=== PATIENT | female | born 2005 | race Caucasian/White ===

== ENCOUNTER 2024-12-03 10:26 | Emergency (ER) | payer OTHER, SELFPAY ==
[2024-12-03 10:27] VITALS: BP 107/70; PULSE 69; RESP 14; TEMP 36.4; O2SAT 100; BMI 24.0
--- NOTE | 2024-12-03 10:43 | CT_ITS ---
PROCEDURE: ABDOMEN/PELVIS W IV CONT ONLY REASON FOR EXAM: Hematemesis following brushing of the teeth. TECHNIQUE: Abdomen and pelvis CT with intravenous contrast. IV CONTRAST: 100 cc of Isovue-300. COMPARISON: None. FINDINGS: Lung bases: Clear Liver: Unremarkable. Gallbladder: Unremarkable. Spleen: Unremarkable. Pancreas: Unremarkable. Adrenals: Unremarkable. Kidneys: Unremarkable. Bladder: Unremarkable. Reproductive Organs: Small amount of free fluid is seen in the cul-de-sac. This may be related to the patient's menstrual cycle probably due to recent ovulation. Bowel: Unremarkable. Appendix: Normal. Lymph nodes: No suspicious lymph node enlargement. Vasculature: Major vascular structures are unremarkable. Peritoneum / Retroperitoneum: No ascites. No free air. Bones: Unremarkable. CT/Abdomen/Pelvis W IV Cont ONLY IMPRESSION: Small amount of free fluid is seen in the cul-de-sac most likely secondary to p atient's menstrual cycle. One or more dose reduction techniques were used (e.g., Automated exposure contr ol, adjustment of the mA and/or kV according to patient size, use of iterative reconstruction technique). Reading Location: [id number]
--- NOTE | 2024-12-03 10:44 | EX.ED.DYSGE1 ---
HPI History of Present Illness Chief Complaint: GI Bleed Narrative Narrative: Patient is a 19-year-old female no known significant past medical history who presents to the emergency department the chief complaint of abdominal pain nausea vomiting with 1 episode of hematemesis. Patient states that this when she woke up she was brushing her teeth she vomited out that there was blood in her vomit. Patient denies any vomiting prior to this episode and states that she has not any recent alcohol use. Patient states that she is not sexually active and had her midcycle approximately 3 weeks ago. Patient states that she talked to few of her friends and advised her to be evaluated. Patient rates her abdominal pain a 5 out of 10 currently. PFSH PFSH Medical History no medical history Home Medications ?Medication ?Instructions ?Recorded ?Last Taken ?Type dicyclomine 20 mg tablet 20 mg PO TID #20 tabs 12/03/24 Unknown Rx ondansetron 4 mg disintegrating 4 mg PO Q6H PRN nausea and 12/03/24 Unknown Rx tablet vomiting #20 tabs Allergy/AdvReac Type Severity Reaction Status Date / Time No Known Allergies Allergy Verified 12/03/24 10:30 Family History no significant family his Surgical History no surgical history Social History Smoking Status: Never smoker ROS ROS ED ROS Narrative Constitutional: Denies fevers, chills, headaches, lightness, dizziness Eyes: Denies change in vision double vision blurry vision Cardiovascular: Denies chest pain Respiratory: Denies shortness of breath Abdomen: Complains of abdominal pain and hematemesis x 1 as noted above after brushing her teeth today : Denies any painful urination, hematuria, polyuria Neurological: Denies numbness, weakness, tingling Musculoskeletal: Denies back pain Skin: Denies rashes or lesions EXAM Physical Exam Narrative Exam Narrative: General: Patient lying in bed rest comfortably did not appear to be in acute distress Head: Atraumatic, normocephalic Eyes: PERRL bilaterally, EOMI bilaterally, no conjunctival injection noted Neck: Soft, supple, trachea midline Cardiovascular: Regular rate and rhythm no murmurs gallops rubs noted Respiratory: Clear to auscultation bilaterally no rales rhonchi or wheezes noted Abdomen: Soft, nondistended, diffuse tenderness to palpation no rebound guarding on exam Extremities: +5/5 strength noted in the bilateral upper and lower extremities, radial pulses +2/4 in the bilateral extremities, no pedal edema on exam Neurological: Patient following commands knew that she was at [facility] year is 2024 Skin: Warm, dry, intact no rashes or lesions noted Const Vital Signs: 12/03/24 10:27 12/03/24 12:27 Temperature 97.6 F L Temperature Source Oral Pulse Rate 69 79 Respiratory Rate 14 14 Blood Pressure 107/70 Blood Pressure Mean 82 Pulse Ox 100 98 Oxygen Delivery Method Room Air Room Air MDM MDM MDM Narrative Medical decision making narrative: Patient is a 19-year-old female who presented to the emerged part with a chief complaint of 1 episode of hematemesis. On the differential diagnose includes Melamin to cholecystitis, appendicitis, pancreatitis, [place]-H[place] tear although she had no vomiting prior to this, gastritis. Once workup is obtained reviewed she will be reevaluated. Patient be given IV fluid hydration. CBC showed no evidence leukocytosis with normal at 6.1, he was stable 1.9, plate count was noted be 345. Sodium normal 140, potassium of 4.5, creatinine normal at 0.89. Patient AST and ALT were 32 and 14 respectively. Patient lipase normal at 29, test negative, urinalysis showed no evidence of infection. Patient CT ab pelvis with IV contrast showed small amount of free fluid seen in the cul-de-sac most likely secondary to patient's menstrual cycle. Reevaluation the patient the entire time she has been here in the emergency department she has not had any hematemesis. She would like to go home at this point time. She will be referred to a primary care physician and will be given prescriptions for Zofran and Bentyl in case she is coming down with a viral gastroenteritis such as the flu. She is encouraged return with worsening symptoms or concerns. She is agreeable this plan all question concerns answered she was discharged home in stable condition. Lab Data Labs: Laboratory Results - last 24 hr 12/03/24 10:59 WBC 6.1 RBC 4.39 Hgb 11.9 L Hct 36.6 L MCV 83.4 MCH 27.1 MCHC 32.5 RDW Std Deviation 44.1 H RDW Coeff of Kierra 14.6 Plt Count 345 MPV 9.2 Immature Gran % (Auto) 0.200 Neut % (Auto) 66.6 Lymph % (Auto) 26.7 [place] % (Auto) 4.8 Eos % (Auto) 1.0 Baso % (Auto) 0.7 Absolute Neuts (auto) 4.1 Absolute Lymphs (auto) 1.62 Nucleated RBC % 0 Sodium 140 Potassium 4.5 Chloride Direct 105 Carbon Dioxide 26.4 Anion Gap 9 BUN 10 Creatinine 0.89 Estim Creat Clear Calc 93.60 Est GFR (MDRD) Non-Af 95 BUN/Creatinine Ratio 11.0 Glucose 97 Calcium 9.4 Total Bilirubin 0.53 AST 32 ALT 14 Alkaline Phosphatase 59 Total Protein 7.2 Albumin 4.6 Globulin 2.6 Albumin/Globulin Ratio 1.8 Lipase 29 Serum , Qual NEGATIVE Urine Color Straw Urine Clarity Clear Urine pH 6.5 Ur Specific [place] 1.010 Urine Protein Negative Urine Glucose (UA) Normal Urine Ketones Negative Urine Occult Blood Negative Urine Nitrite Negative Urine Bilirubin Negative Urine Urobilinogen Normal Ur Leukocyte Esterase Negative Urine RBC 0 SEEN Urine WBC 0-5 SEEN Ur Squamous Epith Cells 0-5 SEEN Urine Bacteria 0 SEEN Urine Mucus 0 SEEN Radiography Diagnostic Testing: Clinical Impression(s) from Imaging Studies Abdomen/Pelvis CT 12/03/24 10:43 IMPRESSION: Small amount of free fluid is seen in the cul-de-sac most likely secondary to patient's menstrual cycle. One or more dose reduction techniques were used (e.g., Automated exposure control, adjustment of the mA and/or kV according to patient size, use of iterative reconstruction technique). Reading Location: [facility] Discharge Plan Triage Chief Complaint: GI Bleed ED Provider: Jorden Aleman Dx/Rx/DC Orders Clinical Impression: Nausea & vomiting Prescriptions: New dicyclomine 20 mg tablet 20 mg PO TID Qty: 20 0RF ondansetron 4 mg tablet,disintegrating 4 mg PO Q6H PRN (Reason: nausea and vomiting) Qty: 20 0RF Primary Care Provider: Care Physician,No Primary Referrals: NOT,DEFINED [Non-Staff] - Acacia Cooper Martha, COLD SAW OPERATOR-C [[facility]] - Activity Restrictions/Additional Instructions: Your CT did not show anything acute today. Use prescriptions as prescribed. Your blood work was normal. You are given a primary care physician to follow-up with. Return with worsening symptoms or other concerns. Print Language: [place] Disposition Disposition: Home, Self Care
[2024-12-03 11:07] LABS: Bacteria 0 SEEN /hpf (None Seen); Mucous, Urine 0 SEEN /hpf (<or=2+)
[2024-12-03 11:10] LABS: Absolute Lymphocyte Count 1.62 X10^3/uL (0.83-4.51); Absolute Neutrophil Count 4.1 X10^3/uL (2.0-7.7); Basophil# 0.04 X10^3/uL; Basophil% 0.7 % (0-1); Eosinophil# 0.06 X10^3/uL; Hematocrit 36.6 % (37-47); Hemoglobin 11.9 g/dL (12.0-15.0); Lymphocyte # 1.62 X10^3/ul (0.83-4.51); Lymphocyte % 26.7 % (19-41); Mean Corp Hgb Conc 32.5 g/dL (32-36); Mean Corpuscular Hgb 27.1 pg (27.0-32.0); Mean Corpuscular Volume 83.4 fL (81-99); Mean Platelet Vol. 9.2 fl (6.2-12.0); Monocyte# 0.29 X10^3/uL; Monocyte% 4.8 % (0-10); NRBC Flagged by Analyzer 0 % (0-5); Neutrophil # 4.05 X10^3/uL (2.7-7.7); Neutrophil % 66.6 % (47-70); Platelet Count 345 K/mm3 (150-450); RBC Distribution Width CV 14.6 % (11.6-14.6); RBC Distribution Width SD 44.1 fl (35.1-43.9); Red Blood Count 4.39 M/mm3 (4.2-5.4); White Blood Count 6.1 K/mm3 (4.4-11.0)
[2024-12-03 11:15] LABS: Color, Urine Straw (Yellow); Glucose, Dipstick Normal (Normal); Ketone-Dipstick Negative (Negative); Leukocyte Esterase-Dipstick Negative /ul (Negative); Nitrite-Dipstick Negative (Negative); Occult Blood-Urine Negative /ul (Negative); Protein-Dipstick Negative (Negative); Urine Bilirubin Dipstick Negative (Negative); Urine Clarity Clear (Clear); Urine Urobilinogen Normal (Normal); Urine pH 6.5 (5.0 - 8.0)
[2024-12-03 11:41] LABS: Internal QC Validated? YES +Cl - CLEAR BKGD; Pregnancy, Serum, hCG Quali. NEGATIVE Negative
[2024-12-03 11:54] LABS: Lipase 29 U/L (13-75)
--- NOTE | 2024-12-03 11:56 | CM.ED ---
Social work Reason for referral: no PCP Referral source: case find This SW identified patient's lack of PCP and need for resources. This SW entered patient's room, introducing self and role at [facility]. Patient accepted SW visit and confirmed lack of PCP due to moving to [place] about a month ago from [place]. Patient stated needing to set up a PCP and a dentist still, but denied further needs at this time. Patient accepted resources of [facility] Provider Directory and Leonie Norton information. Tasha Dumont, AIRPORT OPERATIONS SUPERVISOR, DIGITAL PRESS OPERATOR
[2024-12-03 11:58] LABS: Red Blood Cells-Urine 0 SEEN /hpf (0-5); Squamous Epithelial Cells - UA 0-5 SEEN /hpf (5-10); White Blood Cells 0-5 SEEN /hpf (0-5)
[2024-12-03 12:00] LABS: ALB/GLOB Ratio 1.8 RATIO (0.9-2.4); Alanine Aminotransfer ALT/SGPT 14 U/L (<=34); Albumin, Serum 4.6 g/dL (3.5-5.0); Alkaline Phosphatase 59 U/L (35-104); Anion Gap 9 (5-15); BUN 10 mg/dL (4-19); Calcium 9.4 mg/dL (7.6-11.0); Carbon Dioxide 26.4 mmol/L (22.0-29.0); Chloride 105 mmol/L (96-108); Creatinine, Serum 0.89 mg/dL (0.70-1.20); EST Glomerular Filtration Rate 95 (>60); Globulin 2.6 g/dL (2.2-4.2); Glucose 97 mg/dL (70-99); Potassium 4.5 mmol/L (3.3-5.1); Protein, Total 7.2 g/dL (5.9-8.4); Sodium Level 140 mmol/L (133-145); Total Bilirubin 0.53 mg/dL (0.00-1.30)
[2024-12-03] MEDS: 0.9% Normal Saline (1000mL) 1,000 ML 999 ML IV (12:01)
[2024-12-03 12:06] LABS: AST(SGOT) 32 U/L (<=31)
[2024-12-03 12:27] VITALS: PULSE 79; RESP 14; O2SAT 98
[2024-12-03] MEDS: Dicyclomine 10 MG Capsule 20 MG PO (15:13)
[2024-12-03] MEDS: Ondansetron ODT 4 MG Tablet PO (15:13)
[2024-12-03 15:14] VITALS: BP 115/70; PULSE 62; RESP 14; TEMP 36.6; O2SAT 100; O2SAT 98
== END 2024-12-03 15:16 | disposition home or self-care (01) ==
PROVIDERS: Emergency Provider Emergency Medicine; Visit Provider Emergency Medicine
DX: R11.2 Nausea with vomiting, unspecified (principal); K92.2 Gastrointestinal hemorrhage, unspecified
CPT/HCPCS: 74177; 80053; 81001; 83690; 84703; 85025; 96360; 96361; 99284; Q9967; A4216